=== PATIENT | male | born 1935 | race Caucasian/White ===

== ENCOUNTER 2017-08-30 10:29 | Inpatient (IN) | payer MEDICARE, BC ==
[2017-08-30] MEDS: ONDANSETRON 4 MG INJ IV (11:11)
[2017-08-30] MEDS: morphine 4 MG/ML VIAL IV (11:12)
[2017-08-30] MEDS: CEFEPIME 2GM/50 ML (PMX) 50 ML IVPB (11:12)
[2017-08-30] MEDS: SODIUM CHLORIDE 0.9% 1L BAG IV* (11:12)
[2017-08-30] MEDS: ACETAMINOPHEN 325 MG TAB PO ×2 (11:12→17:08)
[2017-08-30 11:29] LABS: ADD MAN DIFF? NO
[2017-08-30 11:34] LABS: BASOPHIL # 0.1 10^3/ul (0.0-0.1); BASOPHILS % 0.3 % (0.0-2.0); EOSINOPHILS % 0.2 % (0.0-7.0); HEMOGLOBIN 16.6 g/dl (14.0-18.0); LYMPHOCYTES # 1.4 10^3/ul (0.8-2.9); LYMPHOCYTES % 7.8 % (15.0-51.0); MEAN CORPUSCULAR HEMOGLOBIN 31.4 pg (29.0-33.0); MEAN CORPUSCULAR HGB CONC 33.9 g/dl (32.0-37.0); MEAN CORPUSCULAR VOLUME 92.8 fl (82.0-101.0); MEAN PLATELET VOLUME 9.2 fl (7.4-10.4); MONOCYTES % 5.5 % (0.0-11.0); NEUTROPHIL # 15.6 10^3/ul (1.6-7.5); NEUTROPHILS % 85.5 % (39.0-77.0); PLATELET COUNT 213 10^3/UL (140-415); RED BLOOD COUNT 5.28 10^6/ul (4.70-6.10); RED CELL DISTRIBUTION WIDTH 13.2 % (11.5-14.5)
[2017-08-30 11:34] LABS: WHITE BLOOD COUNT 18.3 10^3/ul (4.8-10.8)
[2017-08-30] MEDS: VANCOMYCIN 1 GM (PMX) 250 ML IVPB (11:53)
[2017-08-30 12:02] LABS: INR 0.96; PROTIME 12.9 Sec (11.9-14.9)
[2017-08-30 12:03] LABS: PARTIAL THROMBOPLASTIN TIME 30.7 Sec (25.0-35.0)
[2017-08-30 12:08] LABS: ALANINE AMINOTRANSFERASE 37 IU/L (13-69); ALBUMIN 4.5 g/dl (3.3-4.9); ALBUMIN/GLOBULIN RATIO 1.12; ALKALINE PHOSPHATASE 86 IU/L (42-121); ANION GAP 19 (8-16); ASPARTATE AMINO TRANSFERASE 26 IU/L (15-46); BILIRUBIN,INDIRECT 0.5 mg/dl (0-1.1); BILIRUBIN,TOTAL 0.5 mg/dl (0.2-1.3); BLOOD UREA NITROGEN 15 mg/dl (7-20); CALCIUM 9.7 mg/dl (8.4-10.2); CARBON DIOXIDE 28 mmol/L (21-31); CHLORIDE 100 mmol/L (97-110); CREATININE 1.04 mg/dl (0.61-1.24); GLUCOSE 147 mg/dl (70-220); POTASSIUM 4.6 mmol/L (3.5-5.1); SODIUM 142 mmol/L (135-144); TOTAL PROTEIN 8.5 g/dl (6.1-8.1)
[2017-08-30 12:15] LABS: LACTIC ACID 2.9 mmol/L (0.5-2.0)
[2017-08-30 13:12] LABS: ADD UMIC YES; UR AMORPHOUS CRYSTAL FEW /HPF (NONE SEEN); UR ASCORBIC ACID NEGATIVE (NEGATIVE); UR BACTERIA FEW /HPF (NONE SEEN); UR BILIRUBIN (Dip) NEGATIVE (NEGATIVE); UR BLOOD (Dip) 2+ mg/dL (NEGATIVE); UR CLARITY SLIGHTLY CLOUDY (CLEAR); UR COLOR YELLOW (YELLOW); UR GLUCOSE (Dip) NEGATIVE (NEGATIVE); UR KETONES (Dip) TRACE mg/dL (NEGATIVE); UR LEUKOCYTE ESTERASE (Dip) 3+ Leu/ul (NEGATIVE); UR NITRITE (Dip) NEGATIVE (NEGATIVE); UR RBC 15 /HPF (0-5); UR SPECIFIC GRAVITY (Dip) 1.013 (1.003-1.030); UR TOTAL PROTEIN (Dip) 1+ mg/dl (NEGATIVE); UR UROBILINOGEN (Dip) NEGATIVE (NEGATIVE); UR WBC > 182 /HPF (0-5)
[2017-08-30 14:12] LABS: LACTIC ACID 1.7 mmol/L (0.5-2.0)
[2017-08-30] MEDS: SOD CHLORIDE 0.9% 1,000 ML IV (14:15)
[2017-08-30] MEDS ORDERED: NACL 0.9% 3 ML SYG IV (14:30)
[2017-08-30] MEDS ORDERED: NA PHOSPHATE/BIPHOS 133 ML ENEMA PR (14:30)
[2017-08-30] MEDS ORDERED: ALBUTEROL/IPRATROPIUM (NEB) 3 ML AMP HHN (14:30)
[2017-08-30] MEDS ORDERED: NITROGLYCERIN (SL) 0.4 MG TAB SL (14:30)
[2017-08-30] MEDS ORDERED: ONDANSETRON 4 MG INJ IV ×2 (14:30)
[2017-08-30] MEDS ORDERED: VANCOMYCIN IV PER PHARMACY XX (15:00)
[2017-08-30] MEDS ORDERED: CEPASTAT LOZENGE MT (15:00)
[2017-08-30 15:02] LABS: FREE T4 (FREE THYROXINE) 1.13 ng/dl (0.85-1.93)
[2017-08-30 16:47] LABS: LACTIC ACID 1.8 mmol/L (0.5-2.0)
[2017-08-30] MEDS: HYDROCODONE/APAP (5/325) TAB PO (17:02)
[2017-08-30] MEDS: LORAZEPAM 0.5 MG TAB PO (17:02)
[2017-08-30] MEDS: SOD CHLORIDE 0.45% 1,000 ML IV (17:10)
[2017-08-30] MEDS: [UNRECOGNIZED DRUG - OTHER] XX (17:30)
[2017-08-30] MEDS: PIPER-TAZO 3.375 GM IV (PMX) 50 ML IVPB (21:11)
[2017-08-30 21:48] LABS: LACTIC ACID 0.9 mmol/L (0.5-2.0)
[2017-08-30] MEDS: VANCOMYCIN 1.5 GM in DEXTROSE 5% 500 ML IVPB (22:52)
[2017-08-31 01:15] LABS: LACTIC ACID 1.3 mmol/L (0.5-2.0)
[2017-08-31] MEDS: [UNRECOGNIZED DRUG - OTHER] XX ×3 (01:30→17:30)
[2017-08-31] MEDS: PIPER-TAZO 3.375 GM IV (PMX) 50 ML IVPB ×4 (02:25→17:31)
[2017-08-31] MEDS: SOD CHLORIDE 0.45% 1,000 ML IV ×3 (02:25→17:39)
[2017-08-31] MEDS: PANTOPRAZOLE (EC) 40 MG TAB PO (05:33)
[2017-08-31] MEDS: ATORVASTATIN 10 MG TAB PO (08:56)
[2017-08-31] MEDS: METOPROLOL (XL) 100 MG TAB PO (08:56)
[2017-08-31] MEDS: CHOLECALCIFEROL 1,000 UNIT TAB PO (08:56)
[2017-08-31] MEDS: ASPIRIN (EC) 81 MG TAB PO (08:56)
[2017-08-31] MEDS: AMLODIPINE 10 MG TAB PO (08:56)
[2017-08-31] MEDS: EZETIMIBE 10 MG TAB PO (08:56)
[2017-08-31] MEDS ORDERED: HERBAL DRUGS PO (09:00)
[2017-08-31 11:52] LABS: ADD MAN DIFF? NO
[2017-08-31 11:53] LABS: BASOPHILS % 0.2 % (0.0-2.0); EOSINOPHILS # 0.1 10^3/ul (0.0-0.5); EOSINOPHILS % 0.7 % (0.0-7.0); HEMATOCRIT 43.4 % (42.0-52.0); HEMOGLOBIN 14.7 g/dl (14.0-18.0); LYMPHOCYTES # 1.2 10^3/ul (0.8-2.9); LYMPHOCYTES % 7.7 % (15.0-51.0); MEAN CORPUSCULAR HEMOGLOBIN 31.3 pg (29.0-33.0); MEAN CORPUSCULAR HGB CONC 33.9 g/dl (32.0-37.0); MEAN CORPUSCULAR VOLUME 92.3 fl (82.0-101.0); MEAN PLATELET VOLUME 9.2 fl (7.4-10.4); MONOCYTE # 0.8 10^3/ul (0.3-0.9); MONOCYTES % 5.4 % (0.0-11.0); NEUTROPHIL # 13.4 10^3/ul (1.6-7.5); NEUTROPHILS % 85.6 % (39.0-77.0); PLATELET COUNT 178 10^3/UL (140-415); RED CELL DISTRIBUTION WIDTH 12.9 % (11.5-14.5)
[2017-08-31 11:53] LABS: WHITE BLOOD COUNT 15.6 10^3/ul (4.8-10.8)
[2017-08-31 12:13] LABS: HEMOGLOBIN A1C 6.3 % (0-5.9)
[2017-08-31] MEDS: PROMETHAZINE/CODEINE 5ML CUP PO (12:13)
[2017-08-31 12:16] LABS: LACTIC ACID 1.3 mmol/L (0.5-2.0)
[2017-08-31 12:17] LABS: CHOL/HDL RATIO 4.2 RATIO; HDL CHOLESTEROL 37 mg/dl (31-75); LDL CHOLESTEROL,CALCULATED 94 mg/dl; TRIGLYCERIDES 125 mg/dl (0-149)
[2017-08-31 12:17] LABS: CHOLESTEROL 156 mg/dl (100-200)
[2017-08-31 12:24] LABS: ANION GAP 19 (8-16); BLOOD UREA NITROGEN 12 mg/dl (7-20); CALCIUM 8.8 mg/dl (8.4-10.2); CARBON DIOXIDE 20 mmol/L (21-31); CHLORIDE 105 mmol/L (97-110); CREATININE 0.76 mg/dl (0.61-1.24); GLUCOSE 144 mg/dl (70-220); PHOSPHORUS 3.2 mg/dl (2.5-4.9); POTASSIUM 4.2 mmol/L (3.5-5.1); SODIUM 140 mmol/L (135-144)
[2017-08-31] MEDS: ALBUTEROL/IPRATROPIUM (NEB) 3 ML AMP HHN ×2 (15:55→23:26)
[2017-08-31] MEDS: GUAIFENESIN 20 MG/ML 5ML CUP PO (17:31)
[2017-08-31 18:31] LABS: LACTIC ACID 1.4 mmol/L (0.5-2.0)
[2017-08-31] MEDS: VANCOMYCIN 1.5 GM in DEXTROSE 5% 500 ML IVPB (20:30)
[2017-09-01] MEDS: [UNRECOGNIZED DRUG - OTHER] XX (00:33)
[2017-09-01] MEDS: PIPER-TAZO 3.375 GM IV (PMX) 50 ML IVPB ×3 (00:33→12:23)
[2017-09-01] MEDS: GUAIFENESIN 20 MG/ML 5ML CUP PO (02:51)
[2017-09-01] MEDS: PANTOPRAZOLE (EC) 40 MG TAB PO (05:12)
[2017-09-01] MEDS: METOPROLOL (XL) 100 MG TAB PO (09:03)
[2017-09-01] MEDS: EZETIMIBE 10 MG TAB PO (09:04)
[2017-09-01] MEDS: ATORVASTATIN 10 MG TAB PO (09:04)
[2017-09-01] MEDS: AMLODIPINE 10 MG TAB PO (09:04)
[2017-09-01] MEDS: CHOLECALCIFEROL 1,000 UNIT TAB PO (09:04)
[2017-09-01] MEDS: ASPIRIN (EC) 81 MG TAB PO (09:04)
[2017-09-01] MEDS: ALBUTEROL/IPRATROPIUM (NEB) 3 ML AMP HHN ×2 (11:08→19:49)
[2017-09-01 13:00] LABS: ADD MAN DIFF? NO
[2017-09-01 13:05] LABS: WHITE BLOOD COUNT 10.4 10^3/ul (4.8-10.8)
[2017-09-01 13:05] LABS: BASOPHILS % 0.3 % (0.0-2.0); EOSINOPHILS # 0.2 10^3/ul (0.0-0.5); EOSINOPHILS % 1.4 % (0.0-7.0); HEMATOCRIT 42.1 % (42.0-52.0); HEMOGLOBIN 14.5 g/dl (14.0-18.0); LYMPHOCYTES # 1.3 10^3/ul (0.8-2.9); LYMPHOCYTES % 12.4 % (15.0-51.0); MEAN CORPUSCULAR HEMOGLOBIN 31.4 pg (29.0-33.0); MEAN CORPUSCULAR HGB CONC 34.4 g/dl (32.0-37.0); MEAN CORPUSCULAR VOLUME 91.1 fl (82.0-101.0); MEAN PLATELET VOLUME 9.3 fl (7.4-10.4); MONOCYTE # 0.8 10^3/ul (0.3-0.9); MONOCYTES % 7.8 % (0.0-11.0); NEUTROPHIL # 8.1 10^3/ul (1.6-7.5); NEUTROPHILS % 77.6 % (39.0-77.0); PLATELET COUNT 175 10^3/UL (140-415); RED BLOOD COUNT 4.62 10^6/ul (4.70-6.10); RED CELL DISTRIBUTION WIDTH 13.2 % (11.5-14.5)
[2017-09-01 13:37] LABS: ANION GAP 13 (8-16); BLOOD UREA NITROGEN 13 mg/dl (7-20); CALCIUM 8.5 mg/dl (8.4-10.2); CARBON DIOXIDE 24 mmol/L (21-31); CHLORIDE 102 mmol/L (97-110); CREATININE 0.89 mg/dl (0.61-1.24); GLUCOSE 117 mg/dl (70-220); POTASSIUM 3.4 mmol/L (3.5-5.1); SODIUM 136 mmol/L (135-144)
[2017-09-01 13:40] LABS: MAGNESIUM 2.1 mg/dl (1.7-2.5)
[2017-09-01] MEDS: LORAZEPAM 0.5 MG TAB PO (14:49)
[2017-09-01] MEDS: MEROPENEM 1 GM/50ML(PMX) 50 ML IVPB (21:18)
[2017-09-01] MEDS: VANCOMYCIN 1.5 GM in DEXTROSE 5% 500 ML IVPB (23:20)
[2017-09-02] MEDS: HYDROCODONE/APAP (5/325) TAB PO ×2 (04:23→11:34)
[2017-09-02 05:54] LABS: ADD MAN DIFF? NO
[2017-09-02 06:00] LABS: WHITE BLOOD COUNT 8.9 10^3/ul (4.8-10.8)
[2017-09-02 06:00] LABS: BASOPHILS % 0.4 % (0.0-2.0); EOSINOPHILS # 0.2 10^3/ul (0.0-0.5); EOSINOPHILS % 1.9 % (0.0-7.0); HEMATOCRIT 38.8 % (42.0-52.0); HEMOGLOBIN 13.7 g/dl (14.0-18.0); LYMPHOCYTES # 1.3 10^3/ul (0.8-2.9); LYMPHOCYTES % 14.5 % (15.0-51.0); MEAN CORPUSCULAR HEMOGLOBIN 31.9 pg (29.0-33.0); MEAN CORPUSCULAR HGB CONC 35.3 g/dl (32.0-37.0); MEAN CORPUSCULAR VOLUME 90.2 fl (82.0-101.0); MEAN PLATELET VOLUME 9.5 fl (7.4-10.4); MONOCYTE # 0.7 10^3/ul (0.3-0.9); MONOCYTES % 8.1 % (0.0-11.0); NEUTROPHIL # 6.6 10^3/ul (1.6-7.5); NEUTROPHILS % 74.5 % (39.0-77.0); PLATELET COUNT 220 10^3/UL (140-415); RED CELL DISTRIBUTION WIDTH 12.8 % (11.5-14.5)
[2017-09-02 06:29] LABS: ANION GAP 12 (8-16); BLOOD UREA NITROGEN 12 mg/dl (7-20); CALCIUM 8.5 mg/dl (8.4-10.2); CARBON DIOXIDE 27 mmol/L (21-31); CHLORIDE 102 mmol/L (97-110); CREATININE 0.81 mg/dl (0.61-1.24); GLUCOSE 116 mg/dl (70-220); POTASSIUM 3.3 mmol/L (3.5-5.1); SODIUM 138 mmol/L (135-144)
[2017-09-02] MEDS: PANTOPRAZOLE (EC) 40 MG TAB PO (07:51)
[2017-09-02] MEDS: ALBUTEROL/IPRATROPIUM (NEB) 3 ML AMP HHN ×2 (08:30→20:00)
[2017-09-02] MEDS: [UNRECOGNIZED DRUG - OTHER] XX ×5 (09:07→17:06)
[2017-09-02] MEDS: EZETIMIBE 10 MG TAB PO (09:08)
[2017-09-02] MEDS: METOPROLOL (XL) 100 MG TAB PO (09:09)
[2017-09-02] MEDS: ATORVASTATIN 10 MG TAB PO (09:09)
[2017-09-02] MEDS: ASPIRIN (EC) 81 MG TAB PO (09:09)
[2017-09-02] MEDS: MEROPENEM 1 GM/50ML(PMX) 50 ML IVPB ×2 (09:09→21:15)
[2017-09-02] MEDS: AMLODIPINE 10 MG TAB PO (09:09)
[2017-09-02] MEDS: CHOLECALCIFEROL 1,000 UNIT TAB PO (09:09)
[2017-09-02] MEDS: LORAZEPAM 0.5 MG TAB PO ×2 (11:33→21:11)
[2017-09-02] MEDS: POTASSIUM CHLORIDE 50 ML IVPB ×3 (13:41→15:08)
[2017-09-03] MEDS: [UNRECOGNIZED DRUG - OTHER] XX ×3 (01:30→16:53)
[2017-09-03] MEDS: PANTOPRAZOLE (EC) 40 MG TAB PO (05:20)
[2017-09-03] MEDS: ALBUTEROL/IPRATROPIUM (NEB) 3 ML AMP HHN ×2 (08:39→20:47)
[2017-09-03] MEDS: CHOLECALCIFEROL 1,000 UNIT TAB PO (09:09)
[2017-09-03] MEDS: EZETIMIBE 10 MG TAB PO (09:09)
[2017-09-03] MEDS: METOPROLOL (XL) 100 MG TAB PO (09:10)
[2017-09-03] MEDS: AMLODIPINE 10 MG TAB PO (09:10)
[2017-09-03] MEDS: ASPIRIN (EC) 81 MG TAB PO (09:10)
[2017-09-03] MEDS: ATORVASTATIN 10 MG TAB PO (09:10)
[2017-09-03] MEDS: MEROPENEM 1 GM/50ML(PMX) 50 ML IVPB ×2 (09:19→22:39)
[2017-09-03] MEDS: MAGNESIUM HYDROXIDE 30ML CUP PO (13:10)
[2017-09-03 14:24] LABS: ADD MAN DIFF? NO
[2017-09-03 14:25] LABS: WHITE BLOOD COUNT 9.5 10^3/ul (4.8-10.8)
[2017-09-03 14:25] LABS: BASOPHIL # 0.1 10^3/ul (0.0-0.1); BASOPHILS % 0.6 % (0.0-2.0); EOSINOPHILS # 0.2 10^3/ul (0.0-0.5); EOSINOPHILS % 1.8 % (0.0-7.0); HEMATOCRIT 44.5 % (42.0-52.0); HEMOGLOBIN 15.3 g/dl (14.0-18.0); LYMPHOCYTES # 1.3 10^3/ul (0.8-2.9); LYMPHOCYTES % 13.4 % (15.0-51.0); MEAN CORPUSCULAR HEMOGLOBIN 31.3 pg (29.0-33.0); MEAN CORPUSCULAR HGB CONC 34.4 g/dl (32.0-37.0); MEAN PLATELET VOLUME 9.2 fl (7.4-10.4); MONOCYTE # 0.6 10^3/ul (0.3-0.9); MONOCYTES % 6.5 % (0.0-11.0); NEUTROPHIL # 7.3 10^3/ul (1.6-7.5); NEUTROPHILS % 77.1 % (39.0-77.0); PLATELET COUNT 222 10^3/UL (140-415); RED BLOOD COUNT 4.89 10^6/ul (4.70-6.10); RED CELL DISTRIBUTION WIDTH 12.8 % (11.5-14.5)
[2017-09-03 14:45] LABS: MAGNESIUM 2.2 mg/dl (1.7-2.5)
[2017-09-03 14:45] LABS: PHOSPHORUS 3.1 mg/dl (2.5-4.9)
[2017-09-03 14:46] LABS: ANION GAP 16 (8-16); BLOOD UREA NITROGEN 13 mg/dl (7-20); CALCIUM 8.8 mg/dl (8.4-10.2); CARBON DIOXIDE 27 mmol/L (21-31); CHLORIDE 104 mmol/L (97-110); CREATININE 0.83 mg/dl (0.61-1.24); GLUCOSE 142 mg/dl (70-220); POTASSIUM 3.5 mmol/L (3.5-5.1); SODIUM 143 mmol/L (135-144)
[2017-09-03] MEDS: LORAZEPAM 0.5 MG TAB PO (20:17)
[2017-09-03] MEDS: DOCUSATE SODIUM 100 MG CAP PO (20:17)
[2017-09-03] MEDS: HYDROCODONE/APAP (5/325) TAB PO (23:47)
[2017-09-04] MEDS: PANTOPRAZOLE (EC) 40 MG TAB PO (05:28)
[2017-09-04] MEDS: LORAZEPAM 0.5 MG TAB PO (07:31)
[2017-09-04] MEDS: ALBUTEROL/IPRATROPIUM (NEB) 3 ML AMP HHN ×2 (08:20→19:26)
[2017-09-04] MEDS: ATORVASTATIN 10 MG TAB PO (08:59)
[2017-09-04] MEDS: EZETIMIBE 10 MG TAB PO (08:59)
[2017-09-04] MEDS: DOCUSATE SODIUM 100 MG CAP PO (08:59)
[2017-09-04] MEDS: ASPIRIN (EC) 81 MG TAB PO (08:59)
[2017-09-04] MEDS: CHOLECALCIFEROL 1,000 UNIT TAB PO (08:59)
[2017-09-04] MEDS: AMLODIPINE 10 MG TAB PO (09:00)
[2017-09-04] MEDS: METOPROLOL (XL) 100 MG TAB PO (09:00)
[2017-09-04] MEDS: MEROPENEM 1 GM/50ML(PMX) 50 ML IVPB ×2 (09:00→21:36)
[2017-09-05] MEDS: HYDROCODONE/APAP (5/325) TAB PO ×2 (00:33→20:49)
[2017-09-05] MEDS: LORAZEPAM 0.5 MG TAB PO ×3 (01:25→21:55)
[2017-09-05] MEDS: PANTOPRAZOLE (EC) 40 MG TAB PO (05:25)
[2017-09-05] MEDS: MEROPENEM 1 GM/50ML(PMX) 50 ML IVPB ×2 (09:04→20:43)
[2017-09-05] MEDS: ASPIRIN (EC) 81 MG TAB PO (09:05)
[2017-09-05] MEDS: ATORVASTATIN 10 MG TAB PO (09:05)
[2017-09-05] MEDS: CHOLECALCIFEROL 1,000 UNIT TAB PO (09:05)
[2017-09-05] MEDS: EZETIMIBE 10 MG TAB PO (09:05)
[2017-09-05] MEDS: METOPROLOL (XL) 100 MG TAB PO (09:06)
[2017-09-05] MEDS: AMLODIPINE 10 MG TAB PO (09:06)
[2017-09-05] MEDS: ALBUTEROL/IPRATROPIUM (NEB) 3 ML AMP HHN ×2 (10:05→20:29)
[2017-09-05 10:07] LABS: ADD MAN DIFF? NO
[2017-09-05 10:13] LABS: BASOPHIL # 0.1 10^3/ul (0.0-0.1); BASOPHILS % 0.6 % (0.0-2.0); EOSINOPHILS # 0.2 10^3/ul (0.0-0.5); EOSINOPHILS % 1.9 % (0.0-7.0); HEMATOCRIT 40.6 % (42.0-52.0); HEMOGLOBIN 13.8 g/dl (14.0-18.0); LYMPHOCYTES # 1.5 10^3/ul (0.8-2.9); LYMPHOCYTES % 14.8 % (15.0-51.0); MEAN CORPUSCULAR HEMOGLOBIN 31.4 pg (29.0-33.0); MEAN CORPUSCULAR VOLUME 92.3 fl (82.0-101.0); MEAN PLATELET VOLUME 9.5 fl (7.4-10.4); MONOCYTE # 0.7 10^3/ul (0.3-0.9); MONOCYTES % 7.4 % (0.0-11.0); NEUTROPHIL # 7.4 10^3/ul (1.6-7.5); NEUTROPHILS % 74.3 % (39.0-77.0); PLATELET COUNT 268 10^3/UL (140-415)
[2017-09-05 10:33] LABS: PHOSPHORUS 3.8 mg/dl (2.5-4.9)
[2017-09-05 10:33] LABS: MAGNESIUM 2.2 mg/dl (1.7-2.5)
[2017-09-05 10:41] LABS: ANION GAP 16 (8-16); BLOOD UREA NITROGEN 12 mg/dl (7-20); CALCIUM 8.7 mg/dl (8.4-10.2); CARBON DIOXIDE 29 mmol/L (21-31); CHLORIDE 102 mmol/L (97-110); CREATININE 0.82 mg/dl (0.61-1.24); GLUCOSE 120 mg/dl (70-220); POTASSIUM 3.6 mmol/L (3.5-5.1); SODIUM 143 mmol/L (135-144)
[2017-09-05] MEDS: GUAIFENESIN 20 MG/ML 5ML CUP PO (12:22)
[2017-09-06] MEDS: HYDROCODONE/APAP (5/325) TAB PO (02:21)
[2017-09-06] MEDS: PROMETHAZINE/CODEINE 5ML CUP PO (02:54)
[2017-09-06] MEDS: PANTOPRAZOLE (EC) 40 MG TAB PO (05:29)
[2017-09-06] MEDS: ALBUTEROL/IPRATROPIUM (NEB) 3 ML AMP HHN ×2 (07:54→20:05)
[2017-09-06] MEDS: ATORVASTATIN 10 MG TAB PO (09:26)
[2017-09-06] MEDS: ASPIRIN (EC) 81 MG TAB PO (09:27)
[2017-09-06] MEDS: AMLODIPINE 10 MG TAB PO (09:27)
[2017-09-06] MEDS: CHOLECALCIFEROL 1,000 UNIT TAB PO (09:27)
[2017-09-06] MEDS: METOPROLOL (XL) 100 MG TAB PO (09:27)
[2017-09-06] MEDS: EZETIMIBE 10 MG TAB PO (09:27)
[2017-09-06] MEDS: MEROPENEM 1 GM/50ML(PMX) 50 ML IVPB (09:30)
[2017-09-06] MEDS: LIDOCAINE 1% (MPF) 5 ML VIAL SC (10:00)
[2017-09-07] MEDS: MEROPENEM 1 GM/50ML(PMX) 50 ML IVPB ×3 (00:39→21:31)
[2017-09-07] MEDS: PANTOPRAZOLE (EC) 40 MG TAB PO (05:19)
[2017-09-07] MEDS: morphine LIQ (10 MG/5 ML) CUP PO (05:28)
[2017-09-07] MEDS: ALBUTEROL/IPRATROPIUM (NEB) 3 ML AMP HHN ×2 (08:05→20:47)
[2017-09-07] MEDS: METOPROLOL (XL) 100 MG TAB PO (09:50)
[2017-09-07] MEDS: AMLODIPINE 10 MG TAB PO (09:50)
[2017-09-07] MEDS: CHOLECALCIFEROL 1,000 UNIT TAB PO (09:51)
[2017-09-07] MEDS: ASPIRIN (EC) 81 MG TAB PO (09:51)
[2017-09-07] MEDS: EZETIMIBE 10 MG TAB PO (09:51)
[2017-09-07] MEDS: ATORVASTATIN 10 MG TAB PO (09:52)
[2017-09-07] MEDS: LORAZEPAM 2 MG INJ IV (11:49)
[2017-09-08] MEDS: PANTOPRAZOLE (EC) 40 MG TAB PO (05:44)
[2017-09-08 09:04] LABS: ADD MAN DIFF? NO
[2017-09-08] MEDS: ALBUTEROL/IPRATROPIUM (NEB) 3 ML AMP HHN ×2 (09:12→19:39)
[2017-09-08 09:19] LABS: WHITE BLOOD COUNT 11.6 10^3/ul (4.8-10.8)
[2017-09-08 09:19] LABS: BASOPHIL # 0.1 10^3/ul (0.0-0.1); BASOPHILS % 0.4 % (0.0-2.0); EOSINOPHILS # 0.3 10^3/ul (0.0-0.5); EOSINOPHILS % 2.2 % (0.0-7.0); HEMATOCRIT 41.2 % (42.0-52.0); HEMOGLOBIN 13.7 g/dl (14.0-18.0); LYMPHOCYTES # 1.8 10^3/ul (0.8-2.9); LYMPHOCYTES % 15.2 % (15.0-51.0); MEAN CORPUSCULAR HGB CONC 33.3 g/dl (32.0-37.0); MEAN CORPUSCULAR VOLUME 93.2 fl (82.0-101.0); MEAN PLATELET VOLUME 9.6 fl (7.4-10.4); MONOCYTE # 0.8 10^3/ul (0.3-0.9); NEUTROPHIL # 8.7 10^3/ul (1.6-7.5); NEUTROPHILS % 74.5 % (39.0-77.0); PLATELET COUNT 295 10^3/UL (140-415); RED BLOOD COUNT 4.42 10^6/ul (4.70-6.10); RED CELL DISTRIBUTION WIDTH 12.9 % (11.5-14.5)
[2017-09-08] MEDS: ATORVASTATIN 10 MG TAB PO (09:47)
[2017-09-08] MEDS: CHOLECALCIFEROL 1,000 UNIT TAB PO (09:47)
[2017-09-08] MEDS: ASPIRIN (EC) 81 MG TAB PO (09:47)
[2017-09-08] MEDS: MEROPENEM 1 GM/50ML(PMX) 50 ML IVPB ×2 (09:47→20:42)
[2017-09-08 09:48] LABS: ANION GAP 17 (8-16); BLOOD UREA NITROGEN 19 mg/dl (7-20); CALCIUM 8.7 mg/dl (8.4-10.2); CARBON DIOXIDE 26 mmol/L (21-31); CHLORIDE 103 mmol/L (97-110); CREATININE 0.85 mg/dl (0.61-1.24); GLUCOSE 106 mg/dl (70-220); MAGNESIUM 2.2 mg/dl (1.7-2.5); PHOSPHORUS 3.3 mg/dl (2.5-4.9); SODIUM 142 mmol/L (135-144)
[2017-09-08] MEDS: AMLODIPINE 10 MG TAB PO (09:48)
[2017-09-08] MEDS: METOPROLOL (XL) 100 MG TAB PO (09:48)
[2017-09-08] MEDS: EZETIMIBE 10 MG TAB PO (09:48)
[2017-09-09] MEDS: PANTOPRAZOLE (EC) 40 MG TAB PO (05:53)
[2017-09-09 08:00] LABS: ADD MAN DIFF? NO
[2017-09-09 08:03] LABS: WHITE BLOOD COUNT 11.5 10^3/ul (4.8-10.8)
[2017-09-09 08:03] LABS: BASOPHIL # 0.1 10^3/ul (0.0-0.1); BASOPHILS % 0.4 % (0.0-2.0); EOSINOPHILS # 0.3 10^3/ul (0.0-0.5); EOSINOPHILS % 2.4 % (0.0-7.0); HEMATOCRIT 41.5 % (42.0-52.0); HEMOGLOBIN 13.9 g/dl (14.0-18.0); LYMPHOCYTES # 1.4 10^3/ul (0.8-2.9); LYMPHOCYTES % 11.7 % (15.0-51.0); MEAN CORPUSCULAR HGB CONC 33.5 g/dl (32.0-37.0); MEAN CORPUSCULAR VOLUME 92.4 fl (82.0-101.0); MEAN PLATELET VOLUME 9.4 fl (7.4-10.4); MONOCYTE # 0.7 10^3/ul (0.3-0.9); MONOCYTES % 6.2 % (0.0-11.0); NEUTROPHIL # 9.1 10^3/ul (1.6-7.5); NEUTROPHILS % 78.6 % (39.0-77.0); PLATELET COUNT 294 10^3/UL (140-415); RED BLOOD COUNT 4.49 10^6/ul (4.70-6.10); RED CELL DISTRIBUTION WIDTH 12.8 % (11.5-14.5)
[2017-09-09 08:33] LABS: ANION GAP 16 (8-16); BLOOD UREA NITROGEN 16 mg/dl (7-20); CARBON DIOXIDE 28 mmol/L (21-31); CHLORIDE 103 mmol/L (97-110); CREATININE 0.83 mg/dl (0.61-1.24); GLUCOSE 106 mg/dl (70-220); MAGNESIUM 2.1 mg/dl (1.7-2.5); PHOSPHORUS 3.1 mg/dl (2.5-4.9); POTASSIUM 3.9 mmol/L (3.5-5.1); SODIUM 143 mmol/L (135-144)
[2017-09-09] MEDS: ASPIRIN (EC) 81 MG TAB PO (09:14)
[2017-09-09] MEDS: EZETIMIBE 10 MG TAB PO (09:14)
[2017-09-09] MEDS: MEROPENEM 1 GM/50ML(PMX) 50 ML IVPB (09:19)
[2017-09-09] MEDS: CHOLECALCIFEROL 1,000 UNIT TAB PO (09:20)
[2017-09-09] MEDS: METOPROLOL (XL) 100 MG TAB PO (09:20)
[2017-09-09] MEDS: AMLODIPINE 10 MG TAB PO (09:20)
[2017-09-09] MEDS: ATORVASTATIN 10 MG TAB PO (09:21)
[2017-09-09] MEDS: ALBUTEROL/IPRATROPIUM (NEB) 3 ML AMP HHN ×2 (09:42→21:20)
[2017-09-09] MEDS: GUAIFENESIN 20 MG/ML 5ML CUP PO (13:11)
[2017-09-09] MEDS: ERTAPENEM SODIUM 1 GM in SOD CHLORIDE 0.9% 100 ML IVPB (14:28)
[2017-09-09] MEDS: ACETAMINOPHEN 325 MG TAB PO (14:29)
[2017-09-10] MEDS: PANTOPRAZOLE (EC) 40 MG TAB PO (06:29)
[2017-09-10 08:06] LABS: ADD MAN DIFF? NO
[2017-09-10] MEDS: ALBUTEROL/IPRATROPIUM (NEB) 3 ML AMP HHN (08:14)
[2017-09-10 08:22] LABS: BASOPHILS % 0.4 % (0.0-2.0); EOSINOPHILS # 0.3 10^3/ul (0.0-0.5); EOSINOPHILS % 2.6 % (0.0-7.0); HEMATOCRIT 40.1 % (42.0-52.0); HEMOGLOBIN 13.7 g/dl (14.0-18.0); LYMPHOCYTES # 1.5 10^3/ul (0.8-2.9); LYMPHOCYTES % 15.1 % (15.0-51.0); MEAN CORPUSCULAR HEMOGLOBIN 31.3 pg (29.0-33.0); MEAN CORPUSCULAR HGB CONC 34.2 g/dl (32.0-37.0); MEAN CORPUSCULAR VOLUME 91.6 fl (82.0-101.0); MEAN PLATELET VOLUME 9.4 fl (7.4-10.4); MONOCYTE # 0.6 10^3/ul (0.3-0.9); MONOCYTES % 5.9 % (0.0-11.0); NEUTROPHIL # 7.5 10^3/ul (1.6-7.5); NEUTROPHILS % 75.5 % (39.0-77.0); PLATELET COUNT 277 10^3/UL (140-415); RED BLOOD COUNT 4.38 10^6/ul (4.70-6.10); RED CELL DISTRIBUTION WIDTH 12.9 % (11.5-14.5)
[2017-09-10] MEDS: EZETIMIBE 10 MG TAB PO (08:52)
[2017-09-10] MEDS: CHOLECALCIFEROL 1,000 UNIT TAB PO (08:52)
[2017-09-10] MEDS: ATORVASTATIN 10 MG TAB PO (08:52)
[2017-09-10] MEDS: ASPIRIN (EC) 81 MG TAB PO (08:53)
[2017-09-10] MEDS: AMLODIPINE 10 MG TAB PO (08:53)
[2017-09-10] MEDS: METOPROLOL (XL) 100 MG TAB PO (08:53)
[2017-09-10] MEDS: ERTAPENEM SODIUM 1 GM in SOD CHLORIDE 0.9% 100 ML IVPB (13:43)
== END 2017-09-10 15:25 | disposition home health service (06) | DRG 872 ==
LOC: E/R 10:29 → MS4 09-02 20:24 → TEL 14:16
PROC: 02HV33Z Insertion of Infusion Device into Superior Vena Cava, Percutaneous Approach (ICD-10-PCS; principal; 2017-08-30)
DX: A41.50 Gram-negative sepsis, unspecified (principal); R06.03 Acute respiratory distress; I10 Essential (primary) hypertension; N39.0 Urinary tract infection, site not specified; J20.9 Acute bronchitis, unspecified; B95.2 Enterococcus as the cause of diseases classified elsewhere; B96.5 Pseudomonas (aeruginosa) (mallei) (pseudomallei) as the cause of diseases classified elsewhere; N40.0 Benign prostatic hyperplasia without lower urinary tract symptoms; G47.33 Obstructive sleep apnea (adult) (pediatric); R30.0 Dysuria; M54.2 Cervicalgia
CPT/HCPCS: 36415; 36569; 71010; 71045; 76937; 80048; 80053; 80061; 81001; 83036; 83605; 83735; 84100; 84439; 84443; 84484; 85025; 85610; 85730; 87040; 87081; 87086; 87400; 92526; 92610; 93005; 94640; 94664; 96365; 96375; 97003; 97110; 97530; 99291-25

== ENCOUNTER 2019-05-04 17:29 | Inpatient (IN) | payer BC, MEDICARE ==
[2019-05-04] MEDS: CEFEPIME 1GM/50 ML (PMX) 50 ML IVPB (18:27)
[2019-05-04] MEDS: SOD CHLORIDE 0.9% 1,000 ML IV (18:27)
[2019-05-04 18:30] LABS: ADD MAN DIFF? NO
[2019-05-04 18:34] LABS: WHITE BLOOD COUNT 18.2 10^3/ul (4.8-10.8)
[2019-05-04 18:34] LABS: BASOPHIL # 0.1 10^3/ul (0.0-0.1); BASOPHILS % 0.3 % (0.0-2.0); EOSINOPHILS # 0.2 10^3/ul (0.0-0.5); EOSINOPHILS % 1.3 % (0.0-7.0); HEMATOCRIT 48.3 % (42.0-52.0); HEMOGLOBIN 15.5 g/dl (14.0-18.0); LYMPHOCYTES # 1.8 10^3/ul (0.8-2.9); MEAN CORPUSCULAR HEMOGLOBIN 30.2 pg (29.0-33.0); MEAN CORPUSCULAR HGB CONC 32.1 g/dl (32.0-37.0); MEAN PLATELET VOLUME 9.6 fl (7.4-10.4); MONOCYTE # 1.4 10^3/ul (0.3-0.9); MONOCYTES % 7.8 % (0.0-11.0); NEUTROPHIL # 14.6 10^3/ul (1.6-7.5); NEUTROPHILS % 80.1 % (39.0-77.0); PLATELET COUNT 217 10^3/UL (140-415); RED BLOOD COUNT 5.14 10^6/ul (4.70-6.10); RED CELL DISTRIBUTION WIDTH 13.3 % (11.5-14.5)
[2019-05-04] MEDS: VANCOMYCIN 1 GM (PMX) 250 ML IVPB (18:50)
[2019-05-04 18:54] LABS: ALANINE AMINOTRANSFERASE 18 IU/L (13-69); ALBUMIN 4.5 g/dl (3.3-4.9); ALBUMIN/GLOBULIN RATIO 1.21; ALKALINE PHOSPHATASE 64 IU/L (42-121); ANION GAP 9 (5-13); ASPARTATE AMINO TRANSFERASE 22 IU/L (15-46); BILIRUBIN,INDIRECT 0.6 mg/dl (0-1.1); BILIRUBIN,TOTAL 0.6 mg/dl (0.2-1.3); BLOOD UREA NITROGEN 25 mg/dl (7-20); CALCIUM 10.1 mg/dl (8.4-10.2); CARBON DIOXIDE 27 mmol/L (21-31); CHLORIDE 104 mmol/L (97-110); CREATININE 1.42 mg/dl (0.61-1.24); GLUCOSE 115 mg/dl (70-220); POTASSIUM 4.7 mmol/L (3.5-5.1); SODIUM 140 mmol/L (135-144); TOTAL PROTEIN 8.2 g/dl (6.1-8.1)
[2019-05-04 18:55] LABS: LACTIC ACID 1.7 mmol/L (0.5-2.0)
[2019-05-04] MEDS: ACETAMINOPHEN 500 MG TAB PO (19:13)
[2019-05-04] MEDS ORDERED: ONDANSETRON 4 MG INJ IV (21:30)
[2019-05-04] MEDS ORDERED: NACL 0.9% 3 ML SYG IV (21:30)
[2019-05-04] MEDS ORDERED: DOCUSATE SODIUM 100 MG CAP PO (21:30)
[2019-05-04] MEDS ORDERED: ACETAMINOPHEN 325 MG TAB PO (21:30)
[2019-05-04 22:15] LABS: ADD UMIC YES; UR ASCORBIC ACID NEGATIVE (NEGATIVE); UR BILIRUBIN (Dip) NEGATIVE (NEGATIVE); UR BLOOD (Dip) 2+ mg/dL (NEGATIVE); UR CLARITY CLOUDY (CLEAR); UR COLOR YELLOW (YELLOW); UR GLUCOSE (Dip) NEGATIVE (NEGATIVE); UR KETONES (Dip) 1+ mg/dL (NEGATIVE); UR LEUKOCYTE ESTERASE (Dip) 3+ Leu/ul (NEGATIVE); UR NITRITE (Dip) POSITIVE (NEGATIVE); UR RBC 5 /HPF (0-5); UR SPECIFIC GRAVITY (Dip) 1.011 (1.003-1.030); UR TOTAL PROTEIN (Dip) NEGATIVE (NEGATIVE); UR UROBILINOGEN (Dip) NEGATIVE (NEGATIVE); UR WBC > 182 /HPF (0-5)
[2019-05-05] MEDS ORDERED: hydrALAzine 20 MG INJ IV
[2019-05-05] MEDS: SOD CHLORIDE 0.9% 1,000 ML IV (00:21)
[2019-05-05] MEDS: MEROPENEM 1 GM/50ML(PMX) 50 ML IVPB ×3 (03:29→20:34)
[2019-05-05] MEDS: GABAPENTIN 100 MG CAP PO ×2 (08:54→20:34)
[2019-05-05] MEDS: ASPIRIN (EC) 81 MG TAB PO (08:54)
[2019-05-05] MEDS: METOPROLOL (XL) 100 MG TAB PO (08:54)
[2019-05-05] MEDS: AMLODIPINE 10 MG TAB PO (08:55)
[2019-05-05] MEDS: CHOLECALCIFEROL 1,000 UNIT TAB PO (08:55)
[2019-05-05 08:56] LABS: ADD MAN DIFF? NO
[2019-05-05 09:03] LABS: BASOPHIL # 0.1 10^3/ul (0.0-0.1); BASOPHILS % 0.3 % (0.0-2.0); EOSINOPHILS # 0.2 10^3/ul (0.0-0.5); EOSINOPHILS % 1.6 % (0.0-7.0); HEMATOCRIT 45.4 % (42.0-52.0); HEMOGLOBIN 14.5 g/dl (14.0-18.0); LYMPHOCYTES # 1.2 10^3/ul (0.8-2.9); LYMPHOCYTES % 7.8 % (15.0-51.0); MEAN CORPUSCULAR HEMOGLOBIN 29.6 pg (29.0-33.0); MEAN CORPUSCULAR HGB CONC 31.9 g/dl (32.0-37.0); MEAN CORPUSCULAR VOLUME 92.7 fl (82.0-101.0); MEAN PLATELET VOLUME 9.7 fl (7.4-10.4); MONOCYTE # 1.1 10^3/ul (0.3-0.9); MONOCYTES % 7.5 % (0.0-11.0); NEUTROPHIL # 12.1 10^3/ul (1.6-7.5); NEUTROPHILS % 82.3 % (39.0-77.0); PLATELET COUNT 197 10^3/UL (140-415); RED CELL DISTRIBUTION WIDTH 13.5 % (11.5-14.5)
[2019-05-05 09:03] LABS: WHITE BLOOD COUNT 14.7 10^3/ul (4.8-10.8)
[2019-05-05 09:26] LABS: ALANINE AMINOTRANSFERASE 14 IU/L (13-69); ALBUMIN 3.7 g/dl (3.3-4.9); ALBUMIN/GLOBULIN RATIO 1.02; ALKALINE PHOSPHATASE 66 IU/L (42-121); ANION GAP 10 (5-13); ASPARTATE AMINO TRANSFERASE 22 IU/L (15-46); BILIRUBIN,INDIRECT 0.7 mg/dl (0-1.1); BILIRUBIN,TOTAL 0.7 mg/dl (0.2-1.3); BLOOD UREA NITROGEN 22 mg/dl (7-20); CALCIUM 9.2 mg/dl (8.4-10.2); CARBON DIOXIDE 23 mmol/L (21-31); CHLORIDE 108 mmol/L (97-110); CREATININE 1.17 mg/dl (0.61-1.24); GLUCOSE 114 mg/dl (70-220); POTASSIUM 4.1 mmol/L (3.5-5.1); SODIUM 141 mmol/L (135-144); TOTAL PROTEIN 7.3 g/dl (6.1-8.1)
[2019-05-05 09:27] LABS: HEMOGLOBIN A1C 5.5 % (0-5.9)
[2019-05-05 09:42] LABS: MAGNESIUM 2.1 mg/dl (1.7-2.5)
[2019-05-05] MEDS: EZETIMIBE 10 MG TAB PO (20:34)
[2019-05-05] MEDS: ATORVASTATIN 10 MG TAB PO (20:34)
[2019-05-05] MEDS: TAMSULOSIN (SR) 0.4 MG CAP PO (20:34)
[2019-05-06 05:32] LABS: ADD MAN DIFF? NO
[2019-05-06 05:40] LABS: BASOPHIL # 0.1 10^3/ul (0.0-0.1); BASOPHILS % 0.6 % (0.0-2.0); EOSINOPHILS # 0.4 10^3/ul (0.0-0.5); EOSINOPHILS % 3.5 % (0.0-7.0); HEMATOCRIT 43.5 % (42.0-52.0); LYMPHOCYTES # 1.4 10^3/ul (0.8-2.9); LYMPHOCYTES % 12.9 % (15.0-51.0); MEAN CORPUSCULAR HEMOGLOBIN 30.1 pg (29.0-33.0); MEAN CORPUSCULAR HGB CONC 32.2 g/dl (32.0-37.0); MEAN CORPUSCULAR VOLUME 93.5 fl (82.0-101.0); MEAN PLATELET VOLUME 9.8 fl (7.4-10.4); MONOCYTE # 0.9 10^3/ul (0.3-0.9); MONOCYTES % 8.1 % (0.0-11.0); NEUTROPHIL # 8.1 10^3/ul (1.6-7.5); NEUTROPHILS % 74.4 % (39.0-77.0); PLATELET COUNT 185 10^3/UL (140-415); RED BLOOD COUNT 4.65 10^6/ul (4.70-6.10); RED CELL DISTRIBUTION WIDTH 13.2 % (11.5-14.5)
[2019-05-06 05:40] LABS: WHITE BLOOD COUNT 10.9 10^3/ul (4.8-10.8)
[2019-05-06 06:04] LABS: ALBUMIN 3.4 g/dl (3.3-4.9); ANION GAP 6 (5-13); BLOOD UREA NITROGEN 23 mg/dl (7-20); CALCIUM 9.2 mg/dl (8.4-10.2); CARBON DIOXIDE 24 mmol/L (21-31); CHLORIDE 110 mmol/L (97-110); GLUCOSE 115 mg/dl (70-220); MAGNESIUM 2.3 mg/dl (1.7-2.5); PHOSPHORUS 3.7 mg/dl (2.5-4.9); SODIUM 140 mmol/L (135-144)
[2019-05-06] MEDS: METOPROLOL (XL) 100 MG TAB PO (08:13)
[2019-05-06] MEDS: AMLODIPINE 10 MG TAB PO (08:13)
[2019-05-06] MEDS: CHOLECALCIFEROL 1,000 UNIT TAB PO (08:13)
[2019-05-06] MEDS: ASPIRIN (EC) 81 MG TAB PO (08:13)
[2019-05-06] MEDS: GABAPENTIN 100 MG CAP PO ×2 (08:13→21:19)
[2019-05-06] MEDS: MEROPENEM 1 GM/50ML(PMX) 50 ML IVPB ×2 (08:14→21:23)
[2019-05-06] MEDS: ONDANSETRON 4 MG INJ IV (14:57)
[2019-05-06] MEDS: BISACODYL (EC) 5 MG TAB PO (18:33)
[2019-05-06] MEDS: EZETIMIBE 10 MG TAB PO (21:19)
[2019-05-06] MEDS: TAMSULOSIN (SR) 0.4 MG CAP PO (21:19)
[2019-05-06] MEDS: ATORVASTATIN 10 MG TAB PO (21:19)
[2019-05-07] MEDS: CHOLECALCIFEROL 1,000 UNIT TAB PO (09:15)
[2019-05-07] MEDS: AMLODIPINE 10 MG TAB PO (09:15)
[2019-05-07] MEDS: GABAPENTIN 100 MG CAP PO ×2 (09:15→21:38)
[2019-05-07] MEDS: ASPIRIN (EC) 81 MG TAB PO (09:15)
[2019-05-07] MEDS: MEROPENEM 1 GM/50ML(PMX) 50 ML IVPB (09:15)
[2019-05-07] MEDS: METOPROLOL (XL) 100 MG TAB PO (09:15)
[2019-05-07 15:20] LABS: ADD MAN DIFF? NO
[2019-05-07 15:22] LABS: WHITE BLOOD COUNT 9.7 10^3/ul (4.8-10.8)
[2019-05-07 15:22] LABS: BASOPHILS % 0.4 % (0.0-2.0); EOSINOPHILS # 0.4 10^3/ul (0.0-0.5); EOSINOPHILS % 4.2 % (0.0-7.0); HEMATOCRIT 42.9 % (42.0-52.0); LYMPHOCYTES # 1.2 10^3/ul (0.8-2.9); LYMPHOCYTES % 12.7 % (15.0-51.0); MEAN CORPUSCULAR HEMOGLOBIN 30.2 pg (29.0-33.0); MEAN CORPUSCULAR HGB CONC 32.6 g/dl (32.0-37.0); MEAN CORPUSCULAR VOLUME 92.7 fl (82.0-101.0); MEAN PLATELET VOLUME 9.5 fl (7.4-10.4); MONOCYTE # 0.7 10^3/ul (0.3-0.9); NEUTROPHIL # 7.3 10^3/ul (1.6-7.5); NEUTROPHILS % 75.3 % (39.0-77.0); PLATELET COUNT 218 10^3/UL (140-415); RED BLOOD COUNT 4.63 10^6/ul (4.70-6.10); RED CELL DISTRIBUTION WIDTH 12.9 % (11.5-14.5)
[2019-05-07 15:42] LABS: CHOL/HDL RATIO 6.1 RATIO; HDL CHOLESTEROL 26 mg/dl (31-75); LDL CHOLESTEROL,CALCULATED 108 mg/dl; TRIGLYCERIDES 136 mg/dl (0-149)
[2019-05-07 15:42] LABS: CHOLESTEROL 161 mg/dl (100-200)
[2019-05-07 15:44] LABS: ALBUMIN 3.3 g/dl (3.3-4.9); ANION GAP 5 (5-13); BLOOD UREA NITROGEN 28 mg/dl (7-20); CALCIUM 9.1 mg/dl (8.4-10.2); CARBON DIOXIDE 26 mmol/L (21-31); CHLORIDE 107 mmol/L (97-110); CREATININE 1.08 mg/dl (0.61-1.24); GLUCOSE 131 mg/dl (70-220); MAGNESIUM 2.1 mg/dl (1.7-2.5); PHOSPHORUS 2.8 mg/dl (2.5-4.9); SODIUM 138 mmol/L (135-144)
[2019-05-07 16:35] LABS: POTASSIUM 4.1 mmol/L (3.5-5.1)
[2019-05-07] MEDS: PIPER-TAZO 3.375 GM IV (PMX) 100 ML IVPB (18:24)
[2019-05-07] MEDS: TAMSULOSIN (SR) 0.4 MG CAP PO (21:38)
[2019-05-07] MEDS: EZETIMIBE 10 MG TAB PO (21:38)
[2019-05-07] MEDS: ATORVASTATIN 10 MG TAB PO (21:39)
[2019-05-08] MEDS: PIPER-TAZO 3.375 GM IV (PMX) 100 ML IVPB ×3 (02:41→18:03)
[2019-05-08 06:42] LABS: ADD MAN DIFF? NO
[2019-05-08 06:45] LABS: BASOPHIL # 0.1 10^3/ul (0.0-0.1); BASOPHILS % 0.5 % (0.0-2.0); EOSINOPHILS # 0.4 10^3/ul (0.0-0.5); EOSINOPHILS % 4.5 % (0.0-7.0); HEMATOCRIT 41.6 % (42.0-52.0); HEMOGLOBIN 13.4 g/dl (14.0-18.0); LYMPHOCYTES # 1.3 10^3/ul (0.8-2.9); LYMPHOCYTES % 14.3 % (15.0-51.0); MEAN CORPUSCULAR HEMOGLOBIN 29.7 pg (29.0-33.0); MEAN CORPUSCULAR HGB CONC 32.2 g/dl (32.0-37.0); MEAN CORPUSCULAR VOLUME 92.2 fl (82.0-101.0); MEAN PLATELET VOLUME 9.3 fl (7.4-10.4); MONOCYTE # 0.8 10^3/ul (0.3-0.9); MONOCYTES % 8.9 % (0.0-11.0); NEUTROPHIL # 6.5 10^3/ul (1.6-7.5); NEUTROPHILS % 71.3 % (39.0-77.0); PLATELET COUNT 216 10^3/UL (140-415); RED BLOOD COUNT 4.51 10^6/ul (4.70-6.10); RED CELL DISTRIBUTION WIDTH 12.6 % (11.5-14.5)
[2019-05-08 06:45] LABS: WHITE BLOOD COUNT 9.2 10^3/ul (4.8-10.8)
[2019-05-08 07:08] LABS: ALBUMIN 3.4 g/dl (3.3-4.9); ANION GAP 6 (5-13); BLOOD UREA NITROGEN 22 mg/dl (7-20); CALCIUM 9.1 mg/dl (8.4-10.2); CARBON DIOXIDE 26 mmol/L (21-31); CHLORIDE 108 mmol/L (97-110); CREATININE 1.04 mg/dl (0.61-1.24); GLUCOSE 116 mg/dl (70-220); MAGNESIUM 2.1 mg/dl (1.7-2.5); SODIUM 140 mmol/L (135-144)
[2019-05-08] MEDS: ASPIRIN (EC) 81 MG TAB PO (08:36)
[2019-05-08] MEDS: GABAPENTIN 100 MG CAP PO ×2 (08:36→20:14)
[2019-05-08] MEDS: CHOLECALCIFEROL 1,000 UNIT TAB PO (08:36)
[2019-05-08] MEDS: AMLODIPINE 10 MG TAB PO (08:37)
[2019-05-08] MEDS: METOPROLOL (XL) 100 MG TAB PO (08:37)
[2019-05-08] MEDS: ACETAMINOPHEN 325 MG TAB PO ×2 (12:25→20:14)
[2019-05-08] MEDS: ATORVASTATIN 10 MG TAB PO (20:13)
[2019-05-08] MEDS: TAMSULOSIN (SR) 0.4 MG CAP PO (20:14)
[2019-05-08] MEDS: EZETIMIBE 10 MG TAB PO (20:14)
[2019-05-09] MEDS: PIPER-TAZO 3.375 GM IV (PMX) 100 ML IVPB ×3 (01:32→18:18)
[2019-05-09] MEDS: CHOLECALCIFEROL 1,000 UNIT TAB PO (08:21)
[2019-05-09] MEDS: ASPIRIN (EC) 81 MG TAB PO (08:21)
[2019-05-09] MEDS: AMLODIPINE 10 MG TAB PO (08:21)
[2019-05-09] MEDS: GABAPENTIN 100 MG CAP PO ×2 (08:21→20:05)
[2019-05-09] MEDS: METOPROLOL (XL) 100 MG TAB PO (08:22)
[2019-05-09] MEDS: EZETIMIBE 10 MG TAB PO (20:05)
[2019-05-09] MEDS: TAMSULOSIN (SR) 0.4 MG CAP PO (20:05)
[2019-05-09] MEDS: ACETAMINOPHEN 325 MG TAB PO (20:05)
[2019-05-09] MEDS: ATORVASTATIN 10 MG TAB PO (20:05)
[2019-05-09] MEDS: MELATONIN 3 MG TABLET PO (21:00)
[2019-05-10] MEDS: PIPER-TAZO 3.375 GM IV (PMX) 100 ML IVPB ×2 (02:47→10:17)
[2019-05-10] MEDS: ACETAMINOPHEN 325 MG TAB PO ×2 (05:05→17:06)
[2019-05-10] MEDS: ASPIRIN (EC) 81 MG TAB PO (08:44)
[2019-05-10] MEDS: GABAPENTIN 100 MG CAP PO ×2 (08:44→21:08)
[2019-05-10] MEDS: CHOLECALCIFEROL 1,000 UNIT TAB PO (08:44)
[2019-05-10] MEDS: METOPROLOL (XL) 100 MG TAB PO (08:45)
[2019-05-10] MEDS: AMLODIPINE 10 MG TAB PO (08:45)
[2019-05-10] MEDS: LEVOFLOXACIN 500 MG TAB PO (12:07)
[2019-05-10] MEDS: EZETIMIBE 10 MG TAB PO (21:08)
[2019-05-10] MEDS: ATORVASTATIN 10 MG TAB PO (21:08)
[2019-05-10] MEDS: MELATONIN 3 MG TABLET PO (21:08)
[2019-05-10] MEDS: TAMSULOSIN (SR) 0.4 MG CAP PO (21:08)
[2019-05-11] MEDS: LEVOFLOXACIN 500 MG TAB PO (06:11)
[2019-05-11] MEDS: CHOLECALCIFEROL 1,000 UNIT TAB PO (08:32)
[2019-05-11] MEDS: AMLODIPINE 10 MG TAB PO (08:33)
[2019-05-11] MEDS: ASPIRIN (EC) 81 MG TAB PO (08:33)
[2019-05-11] MEDS: METOPROLOL (XL) 100 MG TAB PO (08:33)
[2019-05-11] MEDS: GABAPENTIN 100 MG CAP PO ×2 (08:33→20:47)
[2019-05-11] MEDS: TAMSULOSIN (SR) 0.4 MG CAP PO (20:47)
[2019-05-11] MEDS: EZETIMIBE 10 MG TAB PO (20:47)
[2019-05-11] MEDS: ACETAMINOPHEN 325 MG TAB PO (20:47)
[2019-05-11] MEDS: MELATONIN 3 MG TABLET PO (20:47)
[2019-05-11] MEDS: ATORVASTATIN 10 MG TAB PO (20:47)
[2019-05-12] MEDS: LEVOFLOXACIN 500 MG TAB PO (05:48)
[2019-05-12] MEDS: ASPIRIN (EC) 81 MG TAB PO (08:34)
[2019-05-12] MEDS: CHOLECALCIFEROL 1,000 UNIT TAB PO (08:34)
[2019-05-12] MEDS: AMLODIPINE 10 MG TAB PO (08:34)
[2019-05-12] MEDS: GABAPENTIN 100 MG CAP PO ×2 (08:35→20:58)
[2019-05-12] MEDS: METOPROLOL (XL) 100 MG TAB PO (08:35)
[2019-05-12] MEDS: ENOXAPARIN 40 MG/0.4 ML SYG SC (08:42)
[2019-05-12] MEDS: MELATONIN 3 MG TABLET PO (20:57)
[2019-05-12] MEDS: ATORVASTATIN 10 MG TAB PO (20:58)
[2019-05-12] MEDS: TAMSULOSIN (SR) 0.4 MG CAP PO (20:58)
[2019-05-12] MEDS: EZETIMIBE 10 MG TAB PO (20:58)
[2019-05-13] MEDS: GABAPENTIN 100 MG CAP PO ×2 (08:31→20:33)
[2019-05-13] MEDS: CHOLECALCIFEROL 1,000 UNIT TAB PO (08:31)
[2019-05-13] MEDS: AMLODIPINE 10 MG TAB PO (08:32)
[2019-05-13] MEDS: METOPROLOL (XL) 100 MG TAB PO (08:32)
[2019-05-13] MEDS: ASPIRIN (EC) 81 MG TAB PO (08:32)
[2019-05-13] MEDS: ENOXAPARIN 40 MG/0.4 ML SYG SC (08:52)
[2019-05-13] MEDS: EZETIMIBE 10 MG TAB PO (20:33)
[2019-05-13] MEDS: TAMSULOSIN (SR) 0.4 MG CAP PO (20:34)
[2019-05-13] MEDS: ATORVASTATIN 10 MG TAB PO (20:34)
[2019-05-13] MEDS: MELATONIN 3 MG TABLET PO (20:34)
[2019-05-14] MEDS: GABAPENTIN 100 MG CAP PO (08:38)
[2019-05-14] MEDS: CHOLECALCIFEROL 1,000 UNIT TAB PO (08:38)
[2019-05-14] MEDS: AMLODIPINE 10 MG TAB PO (08:38)
[2019-05-14] MEDS: ASPIRIN (EC) 81 MG TAB PO (08:38)
[2019-05-14] MEDS: METOPROLOL (XL) 100 MG TAB PO (08:38)
[2019-05-14] MEDS: ENOXAPARIN 40 MG/0.4 ML SYG SC (08:41)
== END 2019-05-14 15:30 | DRG 689 ==
LOC: 6WM 23:59 → E/R 17:29
PROVIDERS: Family Medicine
DX: N39.0 Urinary tract infection, site not specified (principal); G92 Toxic encephalopathy; N17.9 Acute kidney failure, unspecified; I69.954 Hemiplegia and hemiparesis following unspecified cerebrovascular disease affecting left non-dominant side; E11.8 Type 2 diabetes mellitus with unspecified complications; I10 Essential (primary) hypertension; N40.0 Benign prostatic hyperplasia without lower urinary tract symptoms; G93.89 Other specified disorders of brain; F01.50 Vascular dementia, unspecified severity, without behavioral disturbance, psychotic disturbance, mood disturbance, and anxiety
CPT/HCPCS: 36415; 70450; 70551; 71045; 76856; 80053; 80061; 80069; 81001; 83036; 83605; 83735; 85025; 87040-91; 87086; 92526; 92610; 93005; 93306; 96374; 96375; 97110; 97161; 97530; 99285-25